=== PATIENT | male | born 1945 | race Caucasian/White ===

== ENCOUNTER 2020-09-16 12:39 | Emergency (ER) | payer OTHER ==
[2020-09-16 13:33] VITALS: BP 151/89; PULSE 88
--- NOTE | 2020-09-16 13:50 | EDM.PDOC ---
ED HPI GENERAL MEDICAL PROBLEM - General Chief Complaint: Back Pain or Injury Stated Complaint: BACK PAIN/FALL Time Seen by Provider: 09/16/20 13:30 Source of Information: Reports: Patient, RN Notes Reviewed History Limitations: Reports: No Limitations - History of Present Illness INITIAL COMMENTS - FREE TEXT/NARRATIVE: Patient is a 75-year-old male who presents to the ED for the evaluation of his head/neck/back injury. Patient notes roughly 2 days ago, he was trying to get out of the car and ended up slipping on the ice, landing on his back hard. He states he did strike his head and thought maybe he had a loss of consciousness roughly 15 to 20 seconds long. He did have one episode of nausea and vomiting directly after this accident. He was in quite a bit of pain, and did take some prescribed Dilaudid tablets for pain management and this seemed to help quite a bit. He notes that everything kind of hurts to breathe, or move much at all. He is also complaining of some severe neck stiffness, but can move it in all range of motion. Patient attends the [facility], and Dr. Shah is his primary care physician. Patient denies any other sick-like symptoms, fever/chills, cough/shortness of breath, nausea/vomiting/diarrhea. Upper Back Pain Score (Numeric/FACES): 8 - Related Data Allergies Allergy/AdvReac Type Severity Reaction Status Date / Time cefazolin sodium [From Ancef] Allergy Hives Verified 09/16/20 13:33 celecoxib [From Celebrex] Allergy Swelling Verified 09/16/20 13:33 Home Meds: Home Meds Docusate Sodium [Colace] 200 mg PO BID PRN 02/09/14 [History] HYDROmorphone [Dilaudid] 4 mg PO Q6HR PRN 02/09/14 [History] Cholecalciferol (Vitamin D3) [Vitamin D3] 2 cap PO DAILY 09/15/14 [History] Albuterol Sulfate [Proair Hfa] 2 puff IH Q6HR 12/07/15 [History] Alendronate Sodium [Fosamax] 70 mg PO WEEKLY 12/07/15 [History] Calcium Carbonate [Calcium] 600 mg PO BID 12/07/15 [History] Magnesium Oxide 420 mg PO DAILY 12/07/15 [History] Tacrolimus [Prograf] 0.5 mg PO TID 12/07/15 [History] Triamcinolone Acetonide [Triamcinolone Acetonide 0.1% Oint] 1 applic PO TID 12/07/15 [History] Orphenadrine [Norflex] 100 mg PO BID PRN #20 tab 09/16/20 [Rx] Past Medical History Cardiovascular History: Reports: Other (See Below) Other Cardiovascular History: lower leg edema, chronic venous insufficiency Respiratory History: Reports: COPD, Other (See Below) Gastrointestinal History: Reports: Gastritis Other Gastrointestinal History: llver transplant in 2008, hepatitis C, varicies, duodenitis, duodenal ulcer, hepatic encephalopathy Musculoskeletal History: Reports: Amputation, Back Pain, Chronic, Fracture, Osteoarthritis, Other (See Below) Other Musculoskeletal History: L below knee amputation, chronic pain, osteoarthrits, R clavicle fracture 1998, lumbar fracture 1997, L rib fractures, femur fracture with ORIF 2014 Psychiatric History: Reports: Depression, PTSD Other Psychiatric History: alcohol abuse, quit 2000 Hematologic History: Reports: Other (See Below) Other Hematologic History: pancytopenia Immunologic History: Reports: Immunosuppression Oncologic (Cancer) History: Reports: Liver - Infectious Disease History Infectious Disease History: Reports: Hepatitis C, MRSA - Past Surgical History GI Surgical History: Reports: EGD, Other (See Below) Neurological Surgical History: Reports: C-Spine Musculoskeletal Surgical History: Reports: Amputation, ORIF Social & Family History - Tobacco Use Tobacco Use Status *Q: Never Tobacco User - Living Situation & Occupation Living situation: Reports: , with Spouse Occupation: Retired ED ROS GENERAL - Review of Systems Review Of Systems: Comprehensive ROS is negative, except as noted in HPI. ED EXAM, UPPER BACK/NECK PAIN - Physical Exam Exam: See Below Exam Limited By: No Limitations General Appearance: Alert, WD/WN, No Apparent Distress Eye Exam: Bilateral Eye: EOMI, Normal Inspection, PERRL Ears Exam: Normal External Exam, Normal Canal, Hearing Grossly Normal, Normal TMs Nose Exam: Normal Inspection Throat/Mouth Exam: Normal Inspection, Normal Lips, Normal Teeth, Normal Gums, Normal Oropharynx, Normal Voice, No Airway Compromise Head Exam: Atraumatic, Normocephalic Neck Exam: Non-Tender, Full Range of Motion, Normal Alignment, Normal Inspection Nexus Criteria: No: Posterior, Midline Cervical Tenderness, Evidence of Int oxication, Altered Level of Consciousness, Focal Neurological Deficit, Painful Distraction Injuries Cardiovascular/Respiratory: Regular Rate, Rhythm, No M/R/G, Normal Peripheral Pulses, No JVD, Normal Breath Sounds, No Respiratory Distress GI/Abdominal: Normal Bowel Sounds, Soft, Non-Tender Extremities: Normal Inspection, Normal Capillary Refill 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 Due to him reporting a loss of consciousness, we will go ahead and do a head CT, neck CT, and chest CT for evaluation. This is to rule out any cervical fracture or rib fracture. 09/16/20 15:19 CT reports demonstrate degenerative change but no acute fractures or other bony abnormality is appreciated. Patient was still complaining some stiffness in his neck, we will get him a prescription for Norflex and [facility]. Departure - Departure Time of Disposition: 15:19 Disposition: Home, Self-Care 01 Condition: Good Clinical Impression: Fall Qualifiers: Encounter type: initial encounter Qualified Code(s): W19.XXXA - Unspecified fall, initial encounter - Discharge Information *PRESCRIPTION DRUG MONITORING PROGRAM REVIEWED*: No *COPY OF PRESCRIPTION DRUG MONITORING REPORT IN PATIENT ELIZABETH: No Prescriptions: Orphenadrine [Norflex] 100 mg PO BID PRN #20 tab PRN Reason: Spasms Instructions: Muscle Strain, [id number] Referrals: Kaela Shah MD [Primary Care Provider] - Forms: ED Department Discharge Additional Instructions: You were seen in the ER today for your injuries sustained after you slipped on the ice a few days ago. CT of your head/neck/chest all demonstrate no acute fractures or other bony abnormalities. You do have some mild degenerative change, and you will likely be stiff and sore for the next few days. You have been given a prescription of Norflex, muscle relaxer, 1 tablet 2 times a day as needed for further muscle spasm/stiffness. Please be aware this medication can make you drowsy. You may continue to take your already prescribed Dilaudid for pain management as you reported this seemed to resolve a lot of your pain. Please be aware, that if you are taking the Norflex along with the Dilaudid, this has increased sedative properties, and you might be more drowsy than normal. I would recommend trying to take 1 or the other versus taking both at the same time if possible. [facility], for any further management you should need regarding this injury. A copy of this visit will be sent to Dr. Shah for her review. Please return to the ER at any time if symptoms change or worsen. Sepsis Event Note (ED) - Evaluation Sepsis Screening Result: No Definite Risk - Focused Exam Vital Signs: Vital Signs Temp Pulse Resp BP Pulse Ox 09/16/20 13:31 98.1 F 88 16 151/89 H 100
--- NOTE | 2020-09-16 14:57 | CT ---
CT cervical spine Technique: Multiple axial sections were obtained from above the C1 inferiorly to the bottom of T3. Reconstructed coronal and sagittal images were obtained. Comparison: Prior MRI cervical spine study of 04/13/13. Findings: C1-2: Degenerative change is noted between the dens and anterior arch of C1. No central canal stenosis is seen. C2-3: Moderate disc space narrowing is seen. Small posterior spur is noted. No central canal stenosis or neural foraminal stenosis is seen. C3-4: Severe disc space narrowing is noted with slight vacuum phenomena. Posterolateral spurring is noted. Moderate right-sided neural foraminal stenosis is seen. Mild left-sided neural foraminal stenosis is noted. Mild central canal stenosis is seen. C4-5: Mild disc space narrowing is seen. No central canal stenosis or neural foraminal stenosis is seen. C5-6: Fusion is seen. Anterior plate and screws are noted. No central canal stenosis or neural foraminal stenosis is seen. CT 6 7: Fusion is seen. Anterior plate and screws are noted. No central canal stenosis or neural foraminal stenosis is seen. C7-T1: There are screws being seen. No central canal stenosis or neural foraminal stenosis is seen. T1-2: Slight posterior disc space narrowing is seen. No central canal stenosis or neural foraminal stenosis is seen. T2-3: Posterior disc space narrowing is noted. No central canal stenosis is seen. Neural foramina are patent. T3-4: Slight anterior wedging of T3 is seen. This is most likely old. Scattered degenerative change is noted throughout the apophyseal joints. No fracture or subluxation is appreciated. Impression: 1. Previous surgery. Degenerative change as noted above. 2. No acute fracture or abnormal subluxation is appreciated. Diagnostic code #2
--- NOTE | 2020-09-16 14:58 | CT ---
CT chest Technique: Multiple axial sections through the chest were obtained. Intravenous contrast was not utilized. Comparison: Prior CT chest study of 12/13/15. Findings: Thoracic aorta shows atherosclerotic change with no aneurysm. Mediastinum and hilar regions show no adenopathy. Slight coronary artery calcification is noted. No pericardial thickening is seen. Surgical clips are seen within the upper right abdomen. Nothing acute is definitely appreciated. Small nodule is seen within the left upper lung measuring about 2 mm. Other smaller nodules are also noted, these findings are felt to be stable from previous CT exam. Slight scarring is noted within the right lung base. No acute parenchymal change is appreciated. Degenerative change is noted within the thoracic spine with several levels of compression deformities which are most likely old. No acute abnormality is definitely appreciated within the thoracic spine. No definite acute rib fracture is appreciated. Impression: 1. Small nodules within the lungs which are felt to be incidental as they are stable from prior exam. 2. Other more chronic findings as noted above. 3. Nothing acute is seen. Diagnostic code #2
--- NOTE | 2020-09-16 15:02 | CT ---
Head CT Technique: Multiple axial sections through the brain were obtained. Reconstructed coronal and sagittal images were obtained. Comparison: Prior head CT study of 02/09/14. Findings: Ventricles along the basal cisterns and sulci over the convexities are mildly prominent. Very minimal areas of diminished density is noted within the periventricular white matter compatible with minimal small vessel ischemic demyelination change. No evidence of intracranial hemorrhage is seen. No midline shift or mass-effect is appreciated. Bone window settings were reviewed which show nothing acute within the visualized paranasal sinuses or within the mastoid sinuses. No acute calvarial abnormality is appreciated. Impression: 1. Mild senescent change. 2. Nothing acute is appreciated on noncontrast head CT. Diagnostic code #2
== END 2020-09-16 15:37 | disposition home or self-care (01) ==
LOC: JD.ED 12:39
DX: S06.9X1A Unspecified intracranial injury with loss of consciousness of 30 minutes or less, initial encounter (principal); M43.6 Torticollis; M54.6 Pain in thoracic spine; R11.2 Nausea with vomiting, unspecified; J44.9 Chronic obstructive pulmonary disease, unspecified; Z88.1 Allergy status to other antibiotic agents; Z79.899 Other long term (current) drug therapy; W00.0XXA Fall on same level due to ice and snow, initial encounter
CPT/HCPCS: 70450; 70450-26; 71250; 71250-26; 72125; 72125-26; 99283; 99283-25

== ENCOUNTER 2020-12-31 18:48 | Emergency (ER) | payer OTHER ==
[2020-12-31] MEDS ORDERED: Lidocaine 1% with EPINEPHrine 1:100,000 10 ML MDV INJECT ONE (19:38)
[2020-12-31] MEDS ORDERED: Diphtheria,Pertussis(Acell),Tetanus Vaccine 0.5 ML Syringe IM ONE (19:38)
--- NOTE | 2020-12-31 19:41 | EDM.PDOC ---
ED HPI GENERAL MEDICAL PROBLEM - General Chief Complaint: Laceration Stated Complaint: FELL AND CUT FOREHEAD OVER L EYE Time Seen by Provider: 12/31/20 19:19 Source of Information: Reports: Patient, RN Notes Reviewed History Limitations: Reports: No Limitations - History of Present Illness INITIAL COMMENTS - FREE TEXT/NARRATIVE: Patient is a 75-year-old male presenting to the emergency department with complaints of a laceration above his left eyebrow. He states that he was working outside and tripped. He hit the area on a board causing a laceration. He denies any loss of consciousness. He has had no dizziness, nausea, or confusion. He also complains of some mild pain to his right thumb as well as a small skin tear to his right forearm. He is unsure when his last tetanus vaccination was. Right Hand Pain Score (Numeric/FACES): 6 - Related Data Allergies Allergy/AdvReac Type Severity Reaction Status Date / Time cefazolin sodium [From Ancef] Allergy Hives Verified 12/31/20 19:12 celecoxib [From Celebrex] Allergy Swelling Verified 12/31/20 19:12 Home Meds: Home Meds Docusate Sodium [Colace] 200 mg PO BID PRN 02/09/14 [History] HYDROmorphone [Dilaudid] 6 mg PO DAILY PRN 02/09/14 [History] Cholecalciferol (Vitamin D3) [Vitamin D3] 800 unit PO DAILY 09/15/14 [History] Albuterol Sulfate [Proair Hfa] 2 puff IH Q6HR 12/07/15 [History] Calcium Carbonate [Calcium] 600 mg PO BID 12/07/15 [History] Magnesium Oxide 420 mg PO TID 12/07/15 [History] Tacrolimus [Prograf] 0.5 mg PO BID 12/07/15 [History] DULoxetine [Cymbalta] 20 mg PO DAILY 12/31/20 [History] Testosterone [Androgel] 5 gm TD DAILY 12/31/20 [History] Past Medical History Cardiovascular History: Reports: Other (See Below) Other Cardiovascular History: lower leg edema, chronic venous insufficiency Respiratory History: Reports: COPD Gastrointestinal History: Reports: Gastritis Other Gastrointestinal History: llver transplant in 2008, hepatitis C, varicies, duodenitis, duodenal ulcer, hepatic encephalopathy Musculoskeletal History: Reports: Amputation, Back Pain, Chronic, Fracture, Osteoarthritis, Other (See Below) Other Musculoskeletal History: L below knee amputation, chronic pain, osteoarthrits, R clavicle fracture 1998, lumbar fracture 1997, L rib fractures, femur fracture with ORIF 2014 Psychiatric History: Reports: Depression, PTSD Other Psychiatric History: alcohol abuse, quit 2000 Hematologic History: Reports: Other (See Below) Other Hematologic History: pancytopenia Immunologic History: Reports: Immunosuppression Oncologic (Cancer) History: Reports: Liver - Infectious Disease History Infectious Disease History: Reports: Hepatitis C, MRSA - Past Surgical History GI Surgical History: Reports: EGD, Other (See Below) Neurological Surgical History: Reports: C-Spine Musculoskeletal Surgical History: Reports: Amputation, ORIF Social & Family History - Tobacco Use Tobacco Use Status *Q: Former Tobacco User Used Tobacco, but Quit: Yes Month/Year Tobacco Last Used: 2000 - Recreational Drug Use Recreational Drug Use: No - Living Situation & Occupation Living situation: Reports: , with Spouse Occupation: Retired ED ROS GENERAL - Review of Systems Review Of Systems: Comprehensive ROS is negative, except as noted in HPI. ED EXAM, SKIN/RASH Exam: See Below Exam Limited By: No Limitations General Appearance: Alert, WD/WN, No Apparent Distress Eye Exam: Bilateral Eye: PERRL, Other (periorbital ecchymosis to left eye.) Respiratory/Chest: No Respiratory Distress, Lungs Clear, Normal Breath Sounds, No Accessory Muscle Use, Chest Non-Tender Cardiovascular: Normal Peripheral Pulses, Regular Rate, Rhythm, No Edema, No Gallop, No JVD, No Murmur, No Rub Neurological: Alert, Oriented, CN II-XII Intact, Normal Cognition, Normal Gait, Normal Reflexes, No Motor/Sensory Deficits Psychiatric: Normal Affect, Normal Mood Skin: Other (4 cm gaping laceration above left eyebrow. Small amount of active bleeding. 1.5 cm skin tear to right forearm. No active bleeding.) ED SKIN PROCEDURES - Laceration/Wound Repair left eyebrow Appearance: Subcutaneous Anesthetic Type: Local Local Anesthesia - Lidocaine (Xylocaine): 1% with EPI Local Anesthetic Volume: 3cc Skin Prep: Chlorhexidine (Hibiciens), Providone-Iodine (Betadine), Saline, Sterile Drape Saline Irrigation (cc's): 50 Exploration/Debridement/Repair: Wound Explored, In a Bloodless Field, No Foreign Material Found Closed with: Sutures Lac/Wound length In cm: 4 Suture Size: 5-0 # of Sutures: 9 Suture Type: Nylon Sterile Dressing Applied: Nurse Tetanus Status Addressed: Yes Complications: No Course - Vital Signs Last Recorded V/S: Last Vital Signs Temp 97.6 F 12/31/20 19:12 Pulse 70 12/31/20 20:28 Resp 15 12/31/20 19:12 BP 130/70 12/31/20 20:28 Pulse Ox 95 12/31/20 20:28 - Orders/Labs/Meds Meds: Medications Discontinued Medications Generic Name Dose Route Start Last Admin Trade Name Frebrandon PRN Reason Stop Dose Admin Diphtheria/Tetanus/Acell Pertussis 0.5 ml 12/31/20 19:38 12/31/20 19:45 Diphtheria,Pertussis(Acell),Tetanus Vaccine 0.5 Ml Syringe IM 12/31/20 19:39 0.5 ml .ONCE ONE Administration Lidocaine/Epinephrine 10 ml 12/31/20 19:38 12/31/20 19:45 Lidocaine 1% With Epinephrine 1:100,000 10 Ml Mdv INJECT 12/31/20 19:39 10 ml ONETIME ONE Administration - Re-Assessments/Exams Free Text/Narrative Re-Assessment/Exam: Patient is a 75-year-old male presenting to the emergency department complaints of a laceration above his left eyebrow. Reports falling while working outside. He hit his forehead on a board when he fell. Denies any loss of consciousness. Neurologic exam is normal. Reports some mild pain in the thenar eminence of his right hand. He declined x-ray. States "it is fine ". He has a small superficial skin tear to the right forearm. I have ordered lidocaine with epi and prep for sutures as well as Tdap vaccination. 12/31/20 20:13 Laceration to left eyebrow was closed via sutures. See procedure notes for closure. Small skin tear to right forearm cleansed with sterile saline. Antibiotic ointment and Band-Aid applied. Tetanus vaccination was updated today. Discharge instructions as documented. Departure - Departure Time of Disposition: 20:14 Disposition: Home, Self-Care 01 Condition: Good Clinical Impression: Laceration Contusion of hand, right Qualifiers: Encounter type: initial encounter Qualified Code(s): S60.221A - Contusion of right hand, initial encounter Skin tear of forearm without complication Qualifiers: Encounter type: initial encounter Laterality: right Qualified Code(s): S51.811A - Laceration without foreign body of right forearm, initial encounter - Discharge Information Instructions: Contusion, Laceration Care, Adult, [id number] Referrals: Kaela Shah MD [Primary Care Provider] - Forms: ED Department Discharge Additional Instructions: You were seen in the emergency department today for a laceration to your left eyebrow. The wound was cleansed and closed with 9 sutures. These should stay intact for 5 days. After that time they may be removed in the clinic by a nurse. Keep the wound clean and dry. Wash with normal soap and water twice daily. Do not submerge the wound in water. Watch for signs of infection including increased redness, swelling, or purulent drainage. If these should occur, you should be seen either in the clinic or in the emergency department as antibiotic treatment may be needed. Return to the ER as needed. Sepsis Event Note (ED) - Evaluation Sepsis Screening Result: No Definite Risk
[2020-12-31 20:30] VITALS: BP 130/70; PULSE 70
== END 2020-12-31 20:29 | disposition home or self-care (01) ==
LOC: JD.ED 18:48
DX: S01.112A Laceration without foreign body of left eyelid and periocular area, initial encounter (principal); S51.811A Laceration without foreign body of right forearm, initial encounter; J44.9 Chronic obstructive pulmonary disease, unspecified; Z88.6 Allergy status to analgesic agent; Z88.1 Allergy status to other antibiotic agents; Z79.899 Other long term (current) drug therapy; Z87.891 Personal history of nicotine dependence; Z23 Encounter for immunization; W01.198A Fall on same level from slipping, tripping and stumbling with subsequent striking against other object, initial encounter
CPT/HCPCS: 12002; 12013; 90471; 90715; 99282; 99282-25

== ENCOUNTER 2021-05-23 13:31 | Emergency (ER) | payer OTHER ==
[2021-05-23] MEDS ORDERED: Ketorolac 60 MG/2 ML SDV IM ONE (13:48)
--- NOTE | 2021-05-23 15:09 | EDM.PDOC ---
ED HPI GENERAL MEDICAL PROBLEM - General Chief Complaint: Neck Problem Stated Complaint: JANEE AMB Time Seen by Provider: 05/23/21 13:34 Source of Information: Reports: Patient, RN Notes Reviewed - History of Present Illness INITIAL COMMENTS - FREE TEXT/NARRATIVE: 76 yr old male lost his balance fell forward in his home a short time ago hitting top of forehead on floor. There was no LOC but he has been having severe neck pain since the fall. Hx of prior neck fusion. Hx of BKA amputation LLE. with a prosthesis. Hx of chronic neck and back pain. He states his hands and arms felt "numb" for about 5 minutes after he fall and than that all resolved. He has some low back pain but not severe. He denies chest pain or difficulty breathing. Has not recently been ill. Treatments OPTOMETRY ASSISTANT: Reports: Other (see below) Other Treatments OPTOMETRY ASSISTANT: fentanyl Neck Pain Score (Numeric/FACES): 10 - Related Data Allergies Allergy/AdvReac Type Severity Reaction Status Date / Time cefazolin sodium [From Ancef] Allergy Hives Verified 05/23/21 13:52 celecoxib [From Celebrex] Allergy Swelling Verified 05/23/21 13:52 Home Meds: Home Meds Docusate Sodium [Colace] 200 mg PO BID PRN 02/09/14 [History] HYDROmorphone [Dilaudid] 6 mg PO DAILY PRN 02/09/14 [History] Cholecalciferol (Vitamin D3) [Vitamin D3] 800 unit PO DAILY 09/15/14 [History] Albuterol Sulfate [Proair Hfa] 2 puff IH Q6HR 12/07/15 [History] Calcium Carbonate [Calcium] 600 mg PO BID 12/07/15 [History] Magnesium Oxide 420 mg PO TID 12/07/15 [History] Tacrolimus [Prograf] 0.5 mg PO BID 12/07/15 [History] DULoxetine [Cymbalta] 20 mg PO DAILY 12/31/20 [History] Testosterone [Androgel] 5 gm TD DAILY 12/31/20 [History] Past Medical History Cardiovascular History: Reports: Other (See Below) Other Cardiovascular History: lower leg edema, chronic venous insufficiency Respiratory History: Reports: COPD Gastrointestinal History: Reports: Gastritis Other Gastrointestinal History: llver transplant in 2008, hepatitis C, varicies, duodenitis, duodenal ulcer, hepatic encephalopathy Musculoskeletal History: Reports: Amputation, Back Pain, Chronic, Fracture, Osteoarthritis, Other (See Below) Other Musculoskeletal History: L below knee amputation, chronic pain, osteoarthrits, R clavicle fracture 1998, lumbar fracture 1997, L rib fractures, femur fracture with ORIF 2014 Psychiatric History: Reports: Depression, PTSD Other Psychiatric History: alcohol abuse, quit 2000 Hematologic History: Reports: Other (See Below) Other Hematologic History: pancytopenia Immunologic History: Reports: Immunosuppression Oncologic (Cancer) History: Reports: Liver - Infectious Disease History Infectious Disease History: Reports: Hepatitis C, MRSA - Past Surgical History GI Surgical History: Reports: EGD, Other (See Below) Neurological Surgical History: Reports: C-Spine Musculoskeletal Surgical History: Reports: Amputation, ORIF Social & Family History - Tobacco Use Tobacco Use Status *Q: Former Tobacco User Used Tobacco, but Quit: Yes Month/Year Tobacco Last Used: 08/2000 - Caffeine Use Caffeine Use: Reports: Energy Drinks - Recreational Drug Use Recreational Drug Use: No - Living Situation & Occupation Living situation: Reports: , with Spouse Occupation: Retired ED ROS GENERAL - Review of Systems Review Of Systems: See Below Constitutional: Reports: No Symptoms HEENT: Denies: Ear Discharge, Vertigo, Vision Change Respiratory: Denies: Shortness of Breath Cardiovascular: Denies: Chest Pain GI/Abdominal: Denies: Abdominal Pain, Nausea, Vomiting Musculoskeletal: Reports: Neck Pain, Back Pain Skin: Reports: Erythema (mild forehead) Neurological: Reports: Headache (mild). Denies: Dizziness ED EXAM, UPPER BACK/NECK PAIN - Physical Exam Exam: See Below General Appearance: Alert, Anxious, Moderate Distress Eye Exam: Bilateral Eye: PERRL Ears Exam: Normal External Exam Nose Exam: Normal Inspection Head Exam: Other (mild erythema upper forehead) Neck Exam: Other (tender post neck) Cardiovascular/Respiratory: Regular Rate, Rhythm, Normal Breath Sounds GI/Abdominal: Non-Tender Back Exam: No: Paraspinal Tenderness, Vertebral Tenderness Extremities: Other (hips and pelvis nontender) Neurologic: No Motor/Sensory Deficits Skin Exam: Normal Color, Warm/Dry Course - Vital Signs Last Recorded V/S: Last Vital Signs Temp 96.9 F 05/23/21 16:35 Pulse 67 05/23/21 16:35 Resp BP 187/95 H 05/23/21 16:35 Pulse Ox 95 05/23/21 16:35 - Orders/Labs/Meds Labs: Laboratory Tests 05/23/21 Range/Units 15:53 SARS-CoV-2 RNA (GEORGINA) Negative (NEGATIVE) Meds: Medications Discontinued Medications Generic Name Dose Route Start Last Admin Trade Name Grant PRN Reason Stop Dose Admin Hydromorphone HCl 1 mg 05/23/21 15:14 05/23/21 15:29 Hydromorphone 1 Mg/Ml Syringe IM 05/23/21 15:15 1 mg ONETIME ONE Administration Hydromorphone HCl 1 mg 05/23/21 18:09 Hydromorphone 1 Mg/Ml Syringe IM 05/23/21 18:10 ONETIME ONE Ketorolac Tromethamine 60 mg 05/23/21 13:48 05/23/21 13:57 Ketorolac 60 Mg/2 Ml Sdv IM 05/23/21 13:49 60 mg ONETIME ONE Administration Lorazepam 1 mg 05/23/21 15:14 05/23/21 15:30 Lorazepam 1 Mg Tab PO 05/23/21 15:15 1 mg ONETIME ONE Administration Lorazepam 0.5 mg 05/23/21 18:09 Lorazepam 0.5 Mg Tab PO 05/23/21 18:10 ONETIME ONE - Re-Assessments/Exams Free Text/Narrative Re-Assessment/Exam: 05/23/21 15:55 CT scanner was down for maintenance resulting in some delay getting the scan. Considered going to MRI but he has shrapnel in his chest from injuries. The CT now completed does show fx of C1 anterior and posterior. He remains neurologically intact. Will start trying to find him a place for transfer realizing most if not all hospitals in the state are on diversion for higher levels of care. 05/23/21 16:22. Radiologist confirms fractures of posterior ring of C2 both sides, as well as fx of anterior C1 ring. There is also a fx within the densof C2 with posterior diplacement of the fracture in relation to the body by about 4.6 mm. Have pushed films to [facility], awaiting Neurosurgeon to view films and get back to me. 05/23/21 18:10. Films were pushed to [facility] a long time ago. They have a system problem retrieving the films so the Neurosurgeon has been waiting until they are available to view before calling. 18:45. Have discussed with Dr Orellana, Neurosurgeon who does agree to have patient transfer. He has requested Hospitalist accept the patient for intial admission care. He will consult, help coordinate care and planned surgery. Have discussed with Dr Field, Hospitalist who does accept patient for admission. 05/23/21 19:11. He is covid negative. He remains neurologically intact. We will send him by ground ambulance. Departure - Departure Time of Disposition: 18:45 Disposition: DC/Tfer to [facility] 02 Clinical Impression: Fall Qualifiers: Encounter type: initial encounter Qualified Code(s): W19.XXXA - Unspecified fall, initial encounter Fracture of C1 vertebra, closed Qualifiers: Encounter type: initial encounter Fracture morphology: unspecified fracture morphology Fracture alignment: displaced Qualified Code(s): S12.000A - Unspecified displaced fracture of first cervical vertebra, initial encounter for closed fracture Fracture of C2 vertebra, closed Qualifiers: Encounter type: initial encounter Fracture morphology: type II dens - Discharge Information Referrals: Kaela Shah MD [Primary Care Provider] - Forms: ED Department Discharge Sepsis Event Note (ED) - Evaluation Sepsis Screening Result: No Definite Risk - Focused Exam Vital Signs: Vital Signs Temp Pulse BP Pulse Ox 05/23/21 16:35 96.9 F 67 187/95 H 95
[2021-05-23] MEDS ORDERED: LORazepam 1 MG Tab PO ONE (15:14)
[2021-05-23] MEDS ORDERED: HYDROmorphone 1 MG/ML Syringe IM ONE ×2 (15:14→18:09)
--- NOTE | 2021-05-23 16:07 | CT ---
CT cervical spine Technique: Multiple axial sections were obtained from above C1 inferiorly to the top of T3. Reconstructed coronal and sagittal images were obtained. Comparison: Previous cervical spine CT study of 09/16/20. Findings: Fractures are seen involving the posterior C1 ring on both sides as well as involving the anterior C1 ring. Fracture is noted within the dens of C2. Dens fracture is posteriorly displaced in relation to the body by about 4.6 mm. Disc space narrowing is noted at C2-3, C3-4 and posteriorly at C4-5. Prior surgery is noted C5-6, C6-7 and C7-T1 with fusion. Scattered degenerative apophyseal change is noted. Moderate right-sided neural foraminal stenosis is noted at C3-4. Mild bilateral neural foraminal stenosis is noted at C5-6. Other neural foramina are felt to be fairly well patent. No central canal stenosis is seen. On the AP view there is degenerative change within the uncovertebral joints at C2-3 and C3-4. No additional fracture is appreciated. Impression: 1. Stable surgery. Degenerative change as noted above. 2. Fractures involving the posterior arch of C1 on both sides as well as involving the anterior arch of C1. 3. Mildly displaced dens fracture of C2 with posterior displacement by about 4.6 mm. Diagnostic code #5
--- NOTE | 2021-05-23 16:10 | CT ---
Head CT Technique: Multiple axial sections through the brain were obtained. Intravenous contrast was not utilized. Reconstructed coronal and sagittal images were obtained. Comparison: Prior head CT study of 09/16/20. Findings: Ventricles along with basal cisterns and sulci over the convexities are mildly prominent. Minimal diminished density is noted within the periventricular white matter compatible with mild small vessel ischemic demyelination change. No other abnormal parenchymal densities are seen. No evidence of intracranial hemorrhage is seen. No midline shift or mass-effect is seen. Very slight atherosclerotic calcification is seen within the carotid siphon. Bone window settings were reviewed. Visualized mastoid sinuses and visualized paranasal sinuses show nothing acute. No acute calvarial abnormality is appreciated. Cervical spine fractures are again seen within C1. Impression: 1. Cervical spine fracture as described on cervical spine CT study. 2. Senescent change as noted above. 3. No acute intracranial abnormality is appreciated. Diagnostic code #3
[2021-05-23 16:36] VITALS: BP 187/95; PULSE 67
[2021-05-23] MEDS ORDERED: LORazepam 0.5 MG Tab PO ONE (18:09)
[2021-05-23] MEDS ORDERED: HYDROmorphone 1 MG/ML Syringe IVPUSH ONE (19:47)
[2021-05-23] MEDS ORDERED: Sodium Chloride 0.9% 10 ML Syringe FLUSH PRN (19:47)
== END 2021-05-23 20:50 ==
LOC: JD.ED 13:31
DX: S12.000A Unspecified displaced fracture of first cervical vertebra, initial encounter for closed fracture (principal); S12.100A Unspecified displaced fracture of second cervical vertebra, initial encounter for closed fracture; J44.9 Chronic obstructive pulmonary disease, unspecified; Z88.8 Allergy status to other drugs, medicaments and biological substances; Z79.899 Other long term (current) drug therapy; Z87.891 Personal history of nicotine dependence; Z20.822 Contact with and (suspected) exposure to COVID-19; W19.XXXA Unspecified fall, initial encounter
CPT/HCPCS: 70450; 72125; 87635; 96372; 96374; 99285; A9270; J1170; J1885; U0002

== ENCOUNTER 2021-10-27 15:19 | Emergency (ER) | payer OTHER ==
[2021-10-27 15:31] VITALS: BP 181/87; PULSE 84
== END 2021-10-27 17:44 | disposition home or self-care (01) ==
LOC: JD.ED 15:19
DX: I87.2 Venous insufficiency (chronic) (peripheral) (principal); L97.811 Non-pressure chronic ulcer of other part of right lower leg limited to breakdown of skin; J44.9 Chronic obstructive pulmonary disease, unspecified; Z88.1 Allergy status to other antibiotic agents; Z88.8 Allergy status to other drugs, medicaments and biological substances
CPT/HCPCS: 36415; 80053; 85025; 86140; 99283; 99284